=== PATIENT | female | born 1990 | race Caucasian/White ===

== ENCOUNTER 2017-01-12 12:09 | Emergency (ER) | payer MEDICAID ==
[~2017-01-12] VITALS: Ht 162.6 cm; Wt 50.5 kg
[2017-01-12 12:13] VITALS: Ht 162.6 cm; Wt 50.5 kg
--- NOTE | 2017-01-12 15:46 | RADRPT ---
PROCEDURE: XR Lumbar Spine. CLINICAL INDICATION: back pain TECHNIQUE: AP, lateral and cone-down lateral view of the lumbar spine were obtained. COMPARISON: No prior studies are available for comparison. FINDINGS: There is normal vertebral mineralization and alignment. No fracture or subluxation is seen. The disc spaces are normal in appearance. The posterior elements are unremarkable. The soft tissues appear normal. RPTAT: AA IMPRESSION: Unremarkable lumbar spine. .Ken Gilbert MD, MD Date Time Electronically viewed and signed by .Ken Gilbert MD, MD on 01/12/2017 15:46 .S/
--- NOTE | 2017-01-12 15:48 | RADRPT ---
PROCEDURE: XR thoracic Spine. CLINICAL INDICATION: Back pain TECHNIQUE: AP, lateral and swimmer's views of the thoracic spine were obtained. COMPARISON: No prior studies are available for comparison. FINDINGS: There is normal vertebral mineralization and alignment. No acute fracture or subluxation is seen. The disc spaces are normal in appearance. The posterior elements are unremarkable. The soft tissues appear normal. RPTAT: AA IMPRESSION: Unremarkable thoracic spine. .Ken Gilbert MD, MD Date Time Electronically viewed and signed by .Ken Gilbert MD, on 01/12/2017 15:48 .S/
[2017-01-12] MEDS ORDERED: ORPH100T PO (15:55)
[2017-01-12] MEDS ORDERED: IBUP-1542 PO (15:55)
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
[2017-01-12 16:12] VITALS: PULSE 81
== END 2017-01-12 16:13 | disposition home or self-care (01) ==
LOC: FTE 12:09
DX: M54.5 Low back pain (principal)
CPT/HCPCS: 72072; 72100; Z7502